=== PATIENT | male | born 1985 | race Caucasian/White ===

== ENCOUNTER 2018-12-04 14:29 | Emergency (ER) | payer OTHER ==
[~2018-12-04] VITALS: Ht 182.9 cm; Wt 90.7 kg
[2018-12-04 15:04] LABS: HEMOGLOBIN 14.6 gm/dL (14.0-18.0); MCH 32.4 pg (26.0-34.0); MCHC 33.9 g/dL (28.0-37.0); MCV 95.6 fL (80.0-100.0); MPV 8.6 fl. (7.2-11.1); NUCLEATED RBCS 0 /100WBC; PLATELET COUNT* 166 thou/uL (150-400); RDW-CV 13.1 % (10.5-14.5); WBC 11.5 thou/uL (4.0-11.0)
[2018-12-04 15:16] LABS: CALCIUM 8.9 mg/dL (8.5-10.1); CREATININE 0.9 mg/dL (0.6-1.3); POTASSIUM 4.5 mmol/L (3.5-5.1)
[2018-12-04 15:17] LABS: APTT 26.3 Seconds (25.0-31.3); PROTIME 10.2 Seconds (9.20-11.50)
[2018-12-04 15:21] LABS: ALBUMIN 4.2 g/dL (3.4-5.0); TOTAL BILIRUBIN 0.5 mg/dL (<0.1-1.0); TOTAL PROTEIN 7.3 g/dL (6.4-8.2)
[2018-12-04 15:37] LABS: ABSOLUTE MONOCYTES 0.6 thou/uL (0.0-1.2); ABSOLUTE NEUTROPHILS 9.9 thou/uL (1.6-8.1); PLATELET ESTIMATE ADEQUATE
[2018-12-04 17:20] VITALS: BP 145/90
== END 2018-12-04 17:20 | disposition short-term general hospital (02) ==
LOC: M.ERS 14:29
PROVIDERS: Physician Assistant
DX: S22.071A Stable burst fracture of T9-T10 vertebra, initial encounter for closed fracture (principal); S22.081A Stable burst fracture of T11-T12 vertebra, initial encounter for closed fracture; S16.1XXA Strain of muscle, fascia and tendon at neck level, initial encounter; F17.200 Nicotine dependence, unspecified, uncomplicated; W11.XXXA Fall on and from ladder, initial encounter; Y93.89 Activity, other specified; Y92.89 Other specified places as the place of occurrence of the external cause; Y99.8 Other external cause status